=== PATIENT | female | born 1965 | race Caucasian/White ===

== ENCOUNTER 2022-01-12 05:39 | Day surgery (SDC) | payer OTHER ==
[2022-01-12] MEDS ORDERED: LACTATED RINGERS SOLUTION 1,000 ML IV SCH (07:15)
[2022-01-12] MEDS ORDERED: ACETAMINOPHEN 325 MG TABLET (FP) PO PRN (07:15)
[2022-01-12 08:34] VITALS: BMI 25.8
[2022-01-12 10:10] VITALS: TEMP 97.5
[2022-01-12 12:29] VITALS: BP 139/75; PULSE 56; RESP 22
== END 2022-01-12 11:42 | disposition home or self-care (01) ==
LOC: JASU-ENDO 05:39
PROVIDERS: ATTEND Internal Medicine Gastroenterology
PROC: 0DJD8ZZ Inspection of Lower Intestinal Tract, Via Natural or Artificial Opening Endoscopic (ICD-10-PCS; principal; 2022-01-12 09:45)
DX: Z12.11 Encounter for screening for malignant neoplasm of colon (principal); K57.30 Diverticulosis of large intestine without perforation or abscess without bleeding; K64.8 Other hemorrhoids